=== PATIENT | female | born 1945 | race American Indian/Alaskan Native ===

== ENCOUNTER 2017-05-22 15:48 | Emergency (ER) | payer SELFPAY | END 2017-05-22 15:49 | disposition left against medical advice (07) | LOC: ED 15:48 | DX: R03.0 Elevated blood-pressure reading, without diagnosis of hypertension (principal); Z53.21 Procedure and treatment not carried out due to patient leaving prior to being seen by health care provider ==

== ENCOUNTER 2017-06-10 18:54 | Emergency (ER) | payer MEDICARE ==
[2017-06-10] MEDS ORDERED: TRIMOX PO ONE (22:15)
--- NOTE | 2017-06-10 22:23 | Emergency Department Report ---
HPI - General Chief Complaint: Earache Time Seen by Provider: 06/10/17 21:54 - HPI HPI: She is a 72-year-old female history of hypertension managed with medication presents to ED complaining of left ear ache times one week. Patient states she is at decreased hearing in that left ear since it began. Patient denies any leaking from ears. She denies any trauma. She denies fevers chills/nausea/ vomiting/shortness of breath/congestion/runny nose/cough/dizziness/ringing in the ears/injury/Headache. ED Past Medical Hx - Past Medical History Hx Hypertension: Yes Hx Diabetes: Yes Additional medical history: CAD - Surgical History Additional Surgical History: Cardiac Stents - Social History Smoking Status: Current Some Day Smoker - Medications Home Medications: Home Medications Medication Instructions Recorded Confirmed Last Taken Type Acetaminophen [Acetaminophen TAB] 325 mg PO Q6HR PRN #30 tablet 06/10/17 Unknown Rx Amlodipine Besylate 5 mg PO DAILY 06/10/17 06/10/17 Unknown History Amoxicillin [Trimox CAP] 500 mg PO BID #20 capsule 06/10/17 Unknown Rx Aspirin EC 81 mg PO DAILY 06/10/17 06/10/17 Unknown History Carvedilol 25 mg PO BID 06/10/17 06/10/17 Unknown History HCTZ 12.5 mg PO DAILY 06/10/17 06/10/17 Unknown History Losartan 50 mg PO DAILY 06/10/17 06/10/17 Unknown History glipiZIDE 10 mg PO BID 06/10/17 06/10/17 Unknown History hydrALAZINE 50 mg PO TID 06/10/17 06/10/17 Unknown History ED Review of Systems ROS: Stated complaint: LT EAR ACHE Other details as noted in HPI Constitutional: denies: chills, fever Eyes: denies: eye pain, eye discharge, vision change ENT: hearing loss. denies: ear pain, throat pain, dental pain, congestion Respiratory: denies: cough, shortness of breath, wheezing Cardiovascular: denies: chest pain, palpitations Endocrine: no symptoms reported Gastrointestinal: denies: abdominal pain, nausea, vomiting, diarrhea Genitourinary: denies: urgency, dysuria, discharge Musculoskeletal: denies: back pain, joint swelling, arthralgia Skin: denies: rash, lesions, pruritus Neurological: denies: headache, weakness, numbness, paresthesias, confusion Psychiatric: denies: anxiety, depression Hematological/Lymphatic: denies: easy bleeding, easy bruising Physical Exam - Physical Exam Vital Signs: Vital Signs 06/10/17 20:12 Temperature 98.4 F Pulse Rate 60 Respiratory 16 Rate Blood Pressure 171/54 Blood Pressure 171/54 [Left] O2 Sat by Pulse 100 Oximetry Physical Exam: GENERAL: Alert and oriented x3, no apparent distress, Normal Gait, atraumatic. HEAD: Head is normocephalic and a-traumatic. EYES: Extra ocular muscles are intact. Pupils are equal, round, and reactive to light and accommodation. EARS: symetrical, atraumatic, non tender, ear canal clear and mild cerumen, tympanic membrance non inflamed. Left ear the ankle tympanic membranes are brownish fluid. Right ear clear mild fluid behind tympanic membrane. No loss of hearing. Decreased hearing. Gross auditory nml bilaterally. Tenderness to palpation maxillary sinuses MOUTH:Mouth is well hydrated and without lesions. Tonsils nonerythematous or swollen, Uvula midline, Tongue not elevated. Mucous membranes are moist. Posterior pharynx clear, no exudate or lesions. Patent airways. NECK: Supple. Non edematous, No carotid bruits. No lymphadenopathy or thyromegaly. LUNGS: Symetrical with respiration, No wheezing, no rales or crackles, CTAB. HEART: S1, S2 present, regular rate and rhythm without murmur, no rubs, no gallops. Non tender to palpation SKIN: Warm and dry, No lesions, No ulceration or induration present. ED Course Vital Signs 06/10/17 20:12 Temperature 98.4 F Pulse Rate 60 Respiratory 16 Rate Blood Pressure 171/54 Blood Pressure 171/54 [Left] O2 Sat by Pulse 100 Oximetry ED Medical Decision Making - Medical Decision Making 72-year-old female presents with sinusitis ED course: Patient received 1 dose of amoxicillin in ED Discussed the patient follow up with ENT specialist has first Discussed some medications of antibiotics and Tylenol as needed. Discussed worsening of symptoms or new symptoms arise such as dizziness to return to ED Vital signs are normalized patient had elevated blood pressure she is chronic hypertension and takes her medication regularly. She is a symptomatic in ED. Discussed patient to continue taking blood pressure medicines. She is in no acute distress and shortness with instructions I gave her Critical care attestation.: If time is entered above; I have spent that time in minutes in the direct care of this critically ill patient, excluding procedure time. ED Disposition Clinical Impression: Sinusitis Qualifiers: Sinusitis location: maxillary Chronicity: chronic Qualified Code(s): J32.0 - Chronic maxillary sinusitis Disposition: TO HOME OR SELFCARE Is pt being admited?: No Does the pt Need Aspirin: No Condition: Stable Instructions: Sinusitis (ED) Additional Instructions: Follow-up with ENT as referred. Symptoms worsen return to ED Take your antibiotic as prescribed Prescriptions: Acetaminophen [Acetaminophen TAB] 325 mg PO Q6HR PRN #30 tablet PRN Reason: Pain Amoxicillin [Trimox CAP] 500 mg PO BID #20 capsule Referrals: PRIMARY CAREMD [Primary Care Provider] - 3-5 Days DINORAH RYAN MD [Staff Physician] - 3-5 Days JEAN SPRINGER PA [Physician Clinical Quality Manager] - 3-5 Days EMETERIO SLAUGHTER MD [Staff Physician] - 3-5 Days KUMAR CRUZ MD [Staff Physician] - 3-5 Days Forms: Accompanied Note, Work/School Release Form(ED) Time of Disposition: 22:32
[2017-06-10 23:01] VITALS: BP 176/68
== END 2017-06-10 23:01 | disposition home or self-care (01) ==
LOC: ED 18:54
DX: J32.0 Chronic maxillary sinusitis (principal); I10 Essential (primary) hypertension; E11.9 Type 2 diabetes mellitus without complications; I25.10 Atherosclerotic heart disease of native coronary artery without angina pectoris; Z79.82 Long term (current) use of aspirin; Z72.0 Tobacco use
CPT/HCPCS: 99282

== ENCOUNTER 2017-07-07 10:59 | Emergency (ER) | payer MEDICARE ==
[~2017-07-07 10:59] MED LIST: ADRENALIN ONE
--- NOTE | 2017-07-07 11:26 | Emergency Department Report ---
ED CPR HPI - General Chief Complaint: Cardiac Arrest/CPR Stated Complaint: CARDIAC ARREST Time Seen by Provider: 07/07/17 11:22 Source: EMS (verbal report received from EMS. ems notes not available at time of chart dictation) - History of Present Illness Initial Comments: This is an approximately 72-year-old -[place] female, previously unknown to me, brought to the hospital by EMS as an out of hospital cardiac arrest. As per verbal report from EMS, patient found down, pulseless, via uncertain mechanism for uncertain duration of time. They reported initial presenting rhythm is asystole. EMS intubated in the field , placed a left-sided external jugular 18-gauge IV, gave 4 rounds of epinephrine , 1 round of sodium bicarbonate. Patient received standard ACLS treatment, including aggressive and adequate chest compressions. Upon arrival to the ER, the patient is pulseless, pupils are fixed and dilated and do not react to light. Patient received standard ACLS treatment and interventions. Patient received aggressive chest compressions. Bedside ultrasound does not demonstrate coordinated ventricular activity. Resuscitation efforts are terminated secondary to prolonged down time, medical futility. No family is available at this time. MD Complaint: found unresponsive, unknown Initial Findings in the Field: no pulse ROSC in the Field: No Associated Injuries: No Treatments Prior to Arrival: intubation, chest compressions, epinephrine mgs #, sodium bicarbonate - Related Data Home Medications Medication Instructions Recorded Confirmed Last Taken Amlodipine Besylate 5 mg PO DAILY 06/10/17 06/10/17 Unknown Aspirin EC 81 mg PO DAILY 06/10/17 06/10/17 Unknown Carvedilol 25 mg PO BID 06/10/17 06/10/17 Unknown HCTZ 12.5 mg PO DAILY 06/10/17 06/10/17 Unknown Losartan 50 mg PO DAILY 06/10/17 06/10/17 Unknown glipiZIDE 10 mg PO BID 06/10/17 06/10/17 Unknown hydrALAZINE 50 mg PO TID 06/10/17 06/10/17 Unknown Previous Rx's Medication Instructions Recorded Last Taken Type Acetaminophen [Acetaminophen TAB] 325 mg PO Q6HR PRN #30 tablet 06/10/17 Unknown Rx Amoxicillin [Trimox CAP] 500 mg PO BID #20 capsule 06/10/17 Unknown Rx Allergies Allergy/AdvReac Type Severity Reaction Status Date / Time No Known Allergies Allergy Unverified 06/10/17 20:18 ED Review of Systems ROS: Stated complaint: CARDIAC ARREST Other details as noted in HPI ED Past Medical Hx - Past Medical History Hx Hypertension: Yes Hx Diabetes: Yes Additional medical history: CAD - Surgical History Additional Surgical History: Cardiac Stents - Social History Smoking Status: Current Some Day Smoker - Medications Home Medications: Home Medications Medication Instructions Recorded Confirmed Last Taken Type Acetaminophen [Acetaminophen TAB] 325 mg PO Q6HR PRN #30 tablet 06/10/17 Unknown Rx Amlodipine Besylate 5 mg PO DAILY 06/10/17 06/10/17 Unknown History Amoxicillin [Trimox CAP] 500 mg PO BID #20 capsule 06/10/17 Unknown Rx Aspirin EC 81 mg PO DAILY 06/10/17 06/10/17 Unknown History Carvedilol 25 mg PO BID 06/10/17 06/10/17 Unknown History HCTZ 12.5 mg PO DAILY 06/10/17 06/10/17 Unknown History Losartan 50 mg PO DAILY 06/10/17 06/10/17 Unknown History glipiZIDE 10 mg PO BID 06/10/17 06/10/17 Unknown History hydrALAZINE 50 mg PO TID 06/10/17 06/10/17 Unknown History ED Physical Exam - General Limitations: Other (intubated, GCS of 3) General appearance: other (intubated and nonresponsive) - Head Head exam: Present: atraumatic, normocephalic - Eye Eye exam: Present: other (pupils are dilated and do not react to light) - ENT ENT exam: Present: normal external ear exam, other (endotracheal tube noted in the oropharynx) - Neck Neck exam: Present: normal inspection - Respiratory Respiratory exam: Present: other (no breath sounds are appreciated). Absent: normal lung sounds bilaterally, respiratory distress, wheezes, rales, rhonchi, stridor - Cardiovascular Cardiovascular Exam: Present: other (patient is pulseless) - GI/Abdominal GI/Abdominal exam: Present: soft - External exam: Present: normal external exam - Extremities Exam Extremities exam: Present: normal inspection - Back Exam Back exam: Present: normal inspection - Neurological Exam Neurological exam: Present: other (patient is nonverbal) - Psychiatric Psychiatric exam: Present: other (patient is nonverbal) - Skin Skin exam: Present: dry - Procedure Description Procedures done: Bedside ultrasound demonstrates no coordinated cardiac activity. There is no coordinated left ventricular activity noted. Critical care attestation.: If time is entered above; I have spent that time in minutes in the direct care of this critically ill patient, excluding procedure time. ED Disposition Clinical Impression: Cardiac arrest Disposition: DC-20 Is pt being admited?: No Does the pt Need Aspirin: No Condition: Undetermined Referrals: PRIMARY CARE, [Primary Care Provider] - 3-5 Days
== END 2017-07-07 15:28 ==
LOC: ED 11:14
DX: I46.9 Cardiac arrest, cause unspecified (principal); I10 Essential (primary) hypertension; E11.9 Type 2 diabetes mellitus without complications; F17.210 Nicotine dependence, cigarettes, uncomplicated; Z95.1 Presence of aortocoronary bypass graft; Z79.82 Long term (current) use of aspirin
CPT/HCPCS: 99285; J0171; 92950